=== PATIENT | female | born 2000 | race African-American/Black ===

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

== ENCOUNTER 2022-07-07 22:25 | Emergency (ER) | payer SELFPAY ==
[~2022-07-07] VITALS: Ht 170.2 cm; Wt 86.2 kg
== END 2022-07-07 23:48 | disposition home or self-care (01) ==
LOC: ER 22:38
DX: R05.9 Cough, unspecified (principal); J06.9 Acute upper respiratory infection, unspecified; R42 Dizziness and giddiness; Z20.822 Contact with and (suspected) exposure to COVID-19
CPT/HCPCS: 0223U; 36415; 87400; 99282